=== PATIENT | male | born 1970 | race Caucasian/White ===

== ENCOUNTER → 2022-06-19 11:02 | Outpatient (CLI) | payer OTHER, SELFPAY ==
--- NOTE | ~2022-06-19 | XR_ITS ---
EXAMINATION: XR chest 2V 06/19/2022 11:18 INDICATION: Cough. Hypertension. PROCEDURE: 2 view chest COMPARISON: No prior studies for comparison. FINDINGS: The lungs are clear. The cardiomediastinal silhouette is within normal limits. There are no pleural effusions. There is no pneumothorax suspected. IMPRESSION: 1: NO ACUTE CARDIOPULMONARY DISEASE. Reviewed, dictated and finalized at location B. M EXAMINER
== END ==
PROVIDERS: PCP Physician Assistant Medical; Visit Provider Physician Assistant Medical
DX: R05.9 Cough, unspecified (principal)
CPT/HCPCS: 71046

== ENCOUNTER 2023-07-23 09:23 | Emergency (ER) | payer BC, SELFPAY ==
--- NOTE | ~2023-07-23 | XR_ITS ---
EXAMINATION: XR abdomen/kub 1V DATE: 07/23/2023 11:33 INDICATION: Kidney stone. Abdominal pain. TECHNIQUE: A supine view of the abdomen on 2 radiographs was obtained. COMPARISON: CT abdomen and pelvis 07/23/2023 FINDINGS: There are no dilated loops of bowel. There is contrast in the renal collecting system. Ther e is mild left hydronephrosis. IMPRESSION: 1. Mild left hydronephrosis. Reviewed, dictated and finalized at location A.
--- NOTE | ~2023-07-23 | CT_ITS ---
EXAMINATION: CT abdomen pelvis w con DATE: 07/23/2023 10:37 INDICATION: Pain TECHNIQUE: Computed tomography (CT) of the abdomen and pelvis was performed with 100 CC Omnipaque 350 intravenous contrast. Automated exposure control and iterative reconstruction technique were employe d. Exam dose: 1825.97 mGy-cm total exam DLP. COMPARISON: None. FINDINGS: Minimal atelectasis at the lung bases. Normal heart size. No pericardial or pleural effusio n. The liver, gallbladder, bile ducts, spleen, pancreas, pancreatic duct and adrenal glands are unremark able. No renal mass lesion is evident. There is mild perinephric stranding on the left in addition to left parapelvic and periureteral stranding. There is an obstructing approximately 5.7 mm calculus at the l eft ureteropelvic junction with mild left pelviectasis and hydronephrosis as a result. No other urinary tract calculus is evident. The urinary bladder, prostate gland and seminal vesicles are unremarkable. Small bilateral fat-containing inguinal hernias. Very small fat-containing umbilical hernia. There is minimal atherosclerotic calcification of the abdominal aorta and iliac arteries but no abdom inal aortic aneurysm. No intraperitoneal or retroperitoneal or pelvic mass lesion or adenopathy or as cites. Small sliding hiatal hernia. Normal appendix. No bowel obstruction, bowel wall thickening, pneumatosis or intraperitoneal free air is detected. Degenerative disc disease is noted particularly at L1-2 and L5-S1. No suspicious osteolytic or osteob lastic lesions are noted. IMPRESSION: Approximately 7 mm obstructing left ureteropelvic junction calculus with mild left hydro nephrosis and perinephric stranding Small sliding hiatal hernia Normal appendix Bilateral small fat-containing inguinal hernias and very small fat-containing umbilical hernia Reviewed, dictated and finalized at Location A. Reviewed, dictated and finalized at location B. IMPRESSION: Approximately 7 mm obstructing left ureteropelvic junction calculu s with mild left hydronephrosis and perinephric stranding Small sliding hiatal hernia Normal appendix Bilateral small fat-containing inguinal hernias and very small fat-containing u mbilical hernia
[2023-07-23 10:09] LABS: Basophils Absolute Auto 0.1 K/mm3 (0.0-0.1); Basophils Percent Auto 0.8 % (0.2-1.2); Eosinophils Absolute Auto 0.1 K/mm3 (0-0.3); Eosinophils Percent Auto 0.5 % (0-4.4); Hemoglobin 16.3 g/dL (14.0-18.0); Immature Granulocyte Absolute 0.11 K/mm3 (0.00-0.031); Immature Granulocyte Percent A 0.8 % (0-0.5); Lymphocytes Absolute Auto 1.46 K/mm3 (0.9-3.2); Mean Corpuscular HGB Conc 32.6 g/dl (32-36); Mean Corpuscular Hemoglobin 30.6 pg (26-34); Mean Platelet Volume 10.8 fl (7.4-10.4); Monocytes Absolute Auto 0.5 K/mm3 (0.1-0.6); Monocytes Percent Auto 4.1 % (2.6-8.5); Neutrophils Percent Auto 82.8 % (45.5-73.1); Platelet Count Result 249 k/mm3 (150-375); Red Blood Count 5.32 M/mm3 (4.6-6.20); Red Cell Distribution Width 12.2 % (11.5-14.5); White Blood Count 13.3 K/mm3 (4.5-10.0)
[2023-07-23 10:18] LABS: Alanine Aminotransferase 40 U/L (6-50); Albumin Level 4.3 g/dL (3.5-5.1); Alkaline Phosphatase 68 U/L (38-126); Anion Gap 5 mmol/L (4-12); Aspartate Amino Transferase 26 U/L (17-59); Bilirubin,Total 0.7 mg/dL (0.2-1.3); Blood Urea Nitrogen 13 mg/dL (9-20); Calcium 9.1 mg/dL (8.4-10.2); Carbon Dioxide 30 mmol/L (22-30); Chloride 103 mmol/L (98-107); Estimated CRCL calculation 124 ml/min; Estimated Glomerular Filt Rate > 60; Glucose 164 mg/dL (65-110); Lipase 58 U/L (23-300); Potassium 4.1 mmol/L (3.4-5.0); Sodium 138 mmol/L (137-145)
[2023-07-23] MEDS: SODIUM CHLORIDE 0.9% IV 1,000 ML 999 ML IV CONT (10:25)
[2023-07-23] MEDS: ONDANSETRON INJ 4 MG/2 ML VIAL IV PUSH (10:26)
[2023-07-23] MEDS: MORPHINE SULFATE (*CRX) 4 MG/ML INJ IV PUSH (10:26)
--- NOTE | 2023-07-23 10:29 | ED.GENADULT ---
HPI - General Adult General Chief complaint: Abdominal Pain Stated complaint: LLQ pain Time Seen by Provider: 07/23/23 09:43 History of Present Illness HPI narrative: patient is a 53-year-old male who presents ER with left lower quadrant abdominal pain. Began this morning. No radiation. He does have feelings of constipation but had a bowel movement yesterday. He has been nauseous and sweaty. No history of kidney stones and no history of diverticulitis. He reports having some spicy helping you know not shows yesterday that is a typical of him. Related Data Home Medications Medication Instructions Recorded Confirmed ibuprofen 200 mg tablet 200 mg PO Q6H PRN 10/04/20 01/01/23 Allergies Allergy/AdvReac Type Severity Reaction Status Date / Time No Known Allergies Allergy Mild Verified 07/23/23 09:54 Review of Systems Review of Systems: All systems reviewed & are unremarkable except as noted in HPI and below Constitutional: Constitutional: Denies chills and Denies fever(s) Comments: Sweating ENT: Reports system reviewed and no additional complaints, except as documented Cardiovascular: Cardiovascular: Reports no additional cardiovascular complaints Respiratory: Respiratory: Reports no additional respiratory complaints Gastrointestinal: Gastrointestinal: Reports abdominal pain, Reports constipation, Reports nausea and Denies vomiting Genitourinary: Genitourinary: Reports no additional male genitourinary complaints Musculoskeletal: Musculoskeletal: Reports no additional musculoskeletal complaints [facility] Past Medical History Medical History Elevated blood pressure reading in office with diagnosis of hypertension Hypertension KELLEY (obstructive sleep apnea) Family History Family History Father Malignant neoplasm of skin Hypertension Heart disease Mother Depression Daughter Depression Grandparent Heart disease Social History Social History Smoking status: Never smoker Second hand tobacco smoke exposure: No Alcohol intake: current Drinks per week: 6 Substance use: never Substance use type: does not use Lack of Transportation: No Lack of Food: Never True Current Housing: I Have Housing Concerned About Future Housing: No Difficulty Paying Gas/Electric Bills: No Difficulty Paying for Meds: No Currently Unemployed: No Difficulty w/ Childcare or Family Care: No Living arrangements: with family Gender identity (if verbalized by the patient): Male Sexual Orientation (if Verbalized by the Patient): Straight or Heterosexual Spiritual care concerns: No Agree to blood products: Yes Exam Narrative: GENERAL: Uncomfortable-appearing, morbidly obese, and in no acute distress. HEAD: Normocephalic, atraumatic. ENT: Mucous membranes moist. NECK: Supple. CHEST: Clear to auscultation. No respiratory distress. HEART: Regular rate and rhythm. Normal peripheral pulses. ABDOMEN: Soft, mild discomfort to left lower quadrant with palpation but no guarding, nondistended. EXTREMITIES: Normal range of motion. No edema. NEURO: Alert and oriented x3. PSYCH: Normal mood and affect. Course Course Emergency Course: Pain improved with morphine. Discussed case with Urology. They have come to the bedside and evaluated the patient. Patient will be discharged home with supportive care and they will perform lithotripsy tomorrow at an outpatient surgery center. They will provide him with this information. Return precautions discussed. Vital Signs Vital signs: Vital Signs Temperature 97.6 F 07/23/23 13:08 Pulse Rate 90 07/23/23 13:08 Respiratory Rate 18 07/23/23 13:08 Blood Pressure 130/80 07/23/23 13:08 Pulse Oximetry 99 07/23/23 13:08 Temperature 97.6 F 07/23/23 13:08 P
[2023-07-23 11:05] LABS: Appearance Urine Clear (Clear); Bacteria Urine None Seen /hpf; Bilirubin Urine Negative (Negative); Blood Urine 3+ (Negative); Color Urine Yellow (Yellow); Glucose Urine UA Trace mg/dL (Negative); Ketones Urine Negative (Negative); Leukocyte Esterase Ur Negative LEU/UL (Negative); Nitrate Urine Negative (Negative); Non Pathogenic Casts 0-2; Protein Urine Negative (Negative); RBC Urine >100 /hpf (0-2); Squamous Epithelial Cell Urine None Seen /hpf (Few); Urobilinogen Urine 0.2 mg/dL (<2.0); WBC Urine 0-5 /hpf (0-3)
[2023-07-23 11:15] LABS: Specific Grav Ur 1.031 (1.001-1.035)
[2023-07-23 11:17] LABS: Add Urine Microscopic? YES
--- NOTE | 2023-07-23 12:42 | WPDURCON ---
Assessment and Plan Assessment and plan (1) Obstruction of left ureteropelvic junction due to stone: Code(s): N20.1 - Calculus of ureter Status: Acute Plan I discussed the risks, benefits and alternatives. The patient with proximal ureteral stone and we discussed options of medical expulsive therapy, ureteroscopy, ESWL. Due to the patient's significant discomfort prior to narcotic pain medicine he would like to proceed with ESWL as soon as possible. We will plan to proceed with left ureteral ESWL tomorrow. The patient was instructed to avoid nonsteroidal anti-inflammatories and other blood thinners. Understands risk procedure include not limited to infection, bleeding, pain, inability to fragment stone, [place], inability to pass stone fragments, and complications of anesthesia. Patient understands and agrees to proceed Urology Consult Note HPI Date Seen: 07/23/23 Requesting Physician: Dr. Perez, ER Primary Care Provider: Liliam Salas MD Consult Narrative Narrative: Ankit Maldonado is a 53 year old male who presented to the emergency department today with acute onset of left-sided abdominal pain. Patient with improvement of the pain with IV morphine. He denies fevers or chills nausea vomiting. The patient does not have a history of stone disease. On CT scan imaging the patient was found have a 7mm proximal ureteral stone with associated left hydronephrosis PMFSH Past Medical History Medical History Elevated blood pressure reading in office with diagnosis of hypertension Hypertension KELLEY (obstructive sleep apnea) Family History Family History Father Malignant neoplasm of skin Hypertension Heart disease Mother Depression Daughter Depression Grandparent Heart disease Social History Social History Smoking status: Never smoker Second hand tobacco smoke exposure: No Alcohol intake: current Drinks per week: 6 Substance use: never Substance use type: does not use Lack of Transportation: No Lack of Food: Never True Current Housing: I Have Housing Concerned About Future Housing: No Difficulty Paying Gas/Electric Bills: No Difficulty Paying for Meds: No Currently Unemployed: No Difficulty w/ Childcare or Family Care: No Living arrangements: with family Gender identity (if verbalized by the patient): Male Sexual Orientation (if Verbalized by the Patient): Straight or Heterosexual Spiritual care concerns: No Agree to blood products: Yes Meds Home Medications and Allergies Home Medications Medication Instructions Recorded Confirmed Type ibuprofen 200 mg tablet 200 mg PO Q6H PRN 10/04/20 01/01/23 History losartan 25 mg tablet 25 mg PO DAILY #30 tabs 06/17/23 Rx propranolol 20 mg tablet 20 mg PO BID PRN anxiety provoking 07/21/23 Rx situation #60 tabs hydrocodone 5 mg-acetaminophen 325 1 tablet PO Q6H PRN pain #20 tabs 07/23/23 Rx mg tablet ondansetron 4 mg disintegrating 4 mg PO Q6H PRN nausea and 07/23/23 Rx tablet vomiting #10 tabs tamsulosin 0.4 mg capsule 0.4 mg PO DAILY #7 caps 07/23/23 Rx Allergies Allergy/AdvReac Type Severity Reaction Status Date / Time No Known Allergies Allergy Mild Verified 07/23/23 09:54 Exam Narrative: The patient is awake and alert. He is in no acute distress. His breathing is unlabored his abdomen is soft nontender nondistended. Results Labs 07/23/23 09:52 07/23/23 09:52 Labs: Short CBC 07/23/23 Range/Units 09:52 WBC 13.3 H (4.5-10.0) K/mm3 Hgb 16.3 (14.0-18.0) g/dL Hct 50.0 (42.0-52.0) % Plt Count 249 (150-375) k/mm3 BMP 07/23/23 09:52 Sodium 138 Potassium 4.1 Chloride 103 Carbon Dioxide 30 BUN 13 Creatinine 0.90 Glucose 164 H Calcium 9.1
[2023-07-23 13:08] VITALS: BP 130/80; PULSE 90; RESP 18; TEMP 36.4; O2SAT 99
== END 2023-07-23 13:09 | disposition home or self-care (01) ==
PROVIDERS: Emergency Provider Emergency Medicine; PCP Family Medicine
DX: N20.1 Calculus of ureter (principal); I10 Essential (primary) hypertension; G47.33 Obstructive sleep apnea (adult) (pediatric)
CPT/HCPCS: 36415; 74018; 74177; 80053; 81001; 83690; 85025; 96361; 96374; 96375; 99284; J2270; J2405; J7030; Q9967

== ENCOUNTER 2023-07-25 01:13 | Day surgery (SDC) | payer BC, SELFPAY ==
[2023-07-24 14:48] VITALS: BMI 42.0
--- NOTE | 2023-07-24 14:53 | PC.NURSE ---
Report to the Outpatient Waiting Room, entrance under the green pavilion located off [facility], at time 1300 on date 07/25/23. Planned Procedure Time: 1500. Time changes happen often and if your time is changed the preop area will call you the afternoon before. - You and your visitor will be asked to self-screen and do not enter if you have any COVID symptoms. - A mask is optional within the hospital at this time. Patients may have clear liquids (water, carbonated beverages, clear teas, apple juice) until 3 hours prior to surgery with a maximum of 20 ounces. - No food from midnight until time of surgery Take the following medications with a SIP of water the morning of surgery: PAIN PILL AND PROPRANOLOL IF NEEDED DO NOT STOP ANY OF YOUR OTHER PRESCRIPTION MEDICATIONS PRIOR TO SURGERY ?EXCEPT THE FOLLOWING Medications to discontinue per physician: N/A Date to take last dose: N/A Please no make-up, nail hungarian, hairspray, perfume, deodorant, or body powder the day of surgery. No jewelry (including any body piercings) or valuables the day of surgery, leave them at home. Please take a shower or bath the night before, or the morning of, surgery with an antibacterial soap. Wear comfortable, loose fitting clothing. - Jewelry must be removed prior to entering the operating room. Rings and piercings that are not removed may be cut off. - The hospital will not accept responsibility for valuables. - Please leave all valuables, including medications, at home the day of surgery. If you are going home after surgery, a licensed driver sales must drive you home. - NO public transportation without another adult if you receive anesthesia. - We recommend that an adult stay with you for 24 hours following discharge. - We also recommend that you do not drive, make important decision, drink alcoholic beverages, or take any drugs that were not prescribed by your health care provider for at least 24 hours after your discharge time. Follow any additional instructions given to you from your surgeon. If you or anyone in your household have experienced Covid symptoms in the past week, please notify your surgeon or the nurse liaison at the phone number below for possible testing. Telephone instructions given to PT Cruzito BRYANT and asked if any additional questions and then verbalized understanding. Patient advised to call surgeon office or pre surgery nurse liaison [phone] if any additional questions.
[2023-07-25] VITALS (7 sets, daily range): BP systolic 107–144; BP diastolic 69–89; PULSE 66–103; RESP 16–18; TEMP 36.9–37.2; O2SAT 90–95
--- NOTE | ~2023-07-25 | XR_ITS ---
. EXAMINATION: XR abdomen/kub 1V DATE: 07/25/2023 13:14 INDICATION: Kidney stone. TECHNIQUE: A supine view of the abdomen on 2 radiographs was obtained. COMPARISON: Abdomen radiographs 07/23/2023, CT abdomen and pelvis 07/23/2023 FINDINGS: There are no dilated loops of bowel. There is a 6 mm stone in proximal left ureter. IMPRESSION: 1. 6 mm stone in proximal left ureter. Reviewed, dictated and finalized at location A.
--- NOTE | 2023-07-25 06:11 | WPDHPUPDATE1 ---
History and Physical Update Update Date/Time: 07/25/23 06:11 History and Physical has been reviewed, including an updated exam of the patient. There are NO changes in the patient's condition. Risks, benefits, and alternatives have been discussed and questions answered. Patient agrees to proceed with procedure.
--- NOTE | 2023-07-25 10:54 | ECG_ITS ---
Measurements Intervals [place] Rate: 69 P: 30 CO: 154 QRS: -16 QRSD: 126 T: 45 QT: 396 QTc: 427 Interpretive Statements SINUS RHYTHM RIGHT BUNDLE BRANCH BLOCK [120+ ms QRS DURATION, UPRIGHT V1, 40+ ms S IN I/aVL/V4/V5/V6] NO PREVIOUS ECG AVAILABLE FOR COMPARISON Electronically Signed On 07-26-2023 13:18:35 CDT by Latonya Rico M.D.
--- NOTE | 2023-07-25 14:01 | WPDANESEPPF ---
Anes - Initial Pre Proc Eval Procedure: Operation Date: 07/25/23 15:00 Proposed Procedures p Left Extracorporeal Shock Wave Lithotripsy - Rudi Gonzalez MD Date/Time: 07/25/23 14:01 Surgeon: Rudi Gonzalez MD Pre Op Diagnosis: left ureteral stone Patient Data Age: 53 Gender: M Height: 1.83 m Weight: 140.6 kg Allergies Allergy/AdvReac Type Severity Reaction Status Date / Time No Known Allergies Allergy Mild Verified 07/24/23 14:47 Home Medications Medication Instructions Recorded Confirmed Type losartan 25 mg tablet 25 mg PO DAILY #30 tabs 06/17/23 07/24/23 Rx propranolol 20 mg tablet 20 mg PO BID PRN anxiety provoking 07/21/23 07/24/23 Rx situation #60 tabs hydrocodone 5 mg-acetaminophen 325 1 tablet PO Q6H PRN pain #20 tabs 07/23/23 07/24/23 Rx mg tablet ondansetron 4 mg disintegrating 4 mg PO Q6H PRN nausea and 07/23/23 07/24/23 Rx tablet vomiting #10 tabs tamsulosin 0.4 mg capsule 0.4 mg PO DAILY #7 caps 07/23/23 07/24/23 Rx Laboratory Tests 07/25/23 13:45 PT Pending INR Pending APTT Pending Patient hx anesthesia problems: none Family hx anesthesia problems: none Results Review: All pre-operative results and documents have been reviewed as part of the pre-operative evaluation. [facility] Past Medical History Medical History Elevated blood pressure reading in office with diagnosis of hypertension Hypertension KELLEY (obstructive sleep apnea) Family History Family History Father Malignant neoplasm of skin Hypertension Heart disease Mother Depression Daughter Depression Grandparent Heart disease Social History Social History Smoking status: Never smoker Second hand tobacco smoke exposure: No Alcohol intake: current Drinks per week: 4 Substance use: never Substance use type: does not use Lack of Transportation: No Lack of Food: Never True Current Housing: I Have Housing Concerned About Future Housing: No Difficulty Paying Gas/Electric Bills: No Difficulty Paying for Meds: No Currently Unemployed: No Difficulty w/ Childcare or Family Care: No Living arrangements: with family Gender identity (if verbalized by the patient): Male Sexual Orientation (if Verbalized by the Patient): Straight or Heterosexual Spiritual care concerns: No Agree to blood products: Yes Anes - Eval Final PreProcedure Day of Procedure 07/25/23 14:01 Patient weight: morbidly obese Heart: regular rate and rhythm Lungs: clear to auscultation Airway: Mallampati scale class II Neurological: alert and oriented Last oral intake: >/= 8 hours ASA classification: III Emergent: no Anesthetic plan: proceed Anesthesia type and monitoring: general and standard monitoring Other findings: Severe KELLEY on CPAP per pt and . Results Review: All pre-operative results and documents have been reviewed as part of the pre-operative evaluation. Informed Consent: The patient's anesthetic plan and its attendant risks and benefits were discussed with the patient/family/POA. Questions were solicited and answers provided to the satisfaction of the patient/family/POA.
[2023-07-25 14:04] LABS: Partial Thromboplastin Time 27.8 Seconds (22.3-36.8); Prothrombin Time 13.4 Seconds (11.1-14.7)
[2023-07-25] MEDS: ceFAZolin 3 GM/D5W 100 ML 100 ML IVPB (14:05)
[2023-07-25] MEDS: LACTATED RINGERS 1,000 ML 30 ML IV CONT (14:49)
--- NOTE | 2023-07-25 15:38 | W.PM.PROC2 ---
Procedure Note - Detailed Date of Procedure 07/25/23 Pre-op Diagnosis Left ureteral stone Post-op Diagnosis Same Procedure Performed Left ESWL Surgeon Rudi Gonzalez MD Anesthesia General Description of Procedure The patient was brought to the operative suite where he was placed in the supine position on the Dornier lithotripsy table. The focal point of the lithotripter was placed at a 5-6mm left proximal ureteral calculus. A total of shocks were delivered at a power setting of 5. There appeared to be good fragmentation of the stone. The patient tolerated the procedure well and was taken to the recovery room in good condition. Drains No Packing No Pathology None sent Complications No immediate complications
--- NOTE | 2023-07-28 13:10 | PM.HPGS ---
History of Present Illness History of Present Illness Consent: Risks, benefits, and alternatives have been discussed and questions answered. Patient agrees to proceed with procedure. Chief complaint: left ureteral stone Narrative: Ankit Maldonado is a 53 year old male who had been recently admitted [facility] with an obstructing painful 5 mm left proximal ureteral stone. He was discharged and arrangements were made for outpatient ESWL. He has had no fevers chills or gross hematuria Review of Systems Review of Systems: All systems reviewed & are unremarkable except as noted in HPI and below PMFSH Past Medical History Medical History Elevated blood pressure reading in office with diagnosis of hypertension Hypertension KELLEY (obstructive sleep apnea) Family History Family History Father Malignant neoplasm of skin Hypertension Heart disease Mother Depression Daughter Depression Grandparent Heart disease Social History Social History Smoking status: Never smoker Second hand tobacco smoke exposure: No Alcohol intake: current Drinks per week: 4 Substance use: never Substance use type: does not use Lack of Transportation: No Lack of Food: Never True Current Housing: I Have Housing Concerned About Future Housing: No Difficulty Paying Gas/Electric Bills: No Difficulty Paying for Meds: No Currently Unemployed: No Difficulty w/ Childcare or Family Care: No Living arrangements: with family Gender identity (if verbalized by the patient): Male Sexual Orientation (if Verbalized by the Patient): Straight or Heterosexual Spiritual care concerns: No Agree to blood products: Yes Meds Home Medications and Allergies Home Medications Medication Instructions Recorded Confirmed Type losartan 25 mg tablet 25 mg PO DAILY #30 tabs 06/17/23 07/24/23 Rx propranolol 20 mg tablet 20 mg PO BID PRN anxiety provoking 07/21/23 07/24/23 Rx situation #60 tabs hydrocodone 5 mg-acetaminophen 325 1 tablet PO Q6H PRN pain #20 tabs 07/23/23 07/24/23 Rx mg tablet ondansetron 4 mg disintegrating 4 mg PO Q6H PRN nausea and 07/23/23 07/24/23 Rx tablet vomiting #10 tabs tamsulosin 0.4 mg capsule 0.4 mg PO DAILY #7 caps 07/23/23 07/24/23 Rx hydrocodone 5 mg-acetaminophen 325 1 - 2 tablet PO Q6H PRN pain #20 07/25/23 Rx mg tablet tabs Allergies Allergy/AdvReac Type Severity Reaction Status Date / Time No Known Allergies Allergy Mild Verified 07/24/23 14:47 Exam Const: General: no acute distress Resp: Effort & Inspection: normal respiratory effort GI: Inspection: non-distended GI Palp: No abdominal tenderness and No Guarding due to palpation present (GI) Auscultation: normal bowel sounds Assessment and Plan Assessment and plan (1) Left ureteral stone: Code(s): N20.1 - Calculus of ureter Status: Acute Assessment and Plan: Left ESWL
== END 2023-07-25 16:15 | disposition home or self-care (01) ==
PROVIDERS: PCP Family Medicine; Visit Provider Urology
PROC: (CPT 50590; principal; 2023-07-25 15:00)
DX: N20.1 Calculus of ureter (principal); I10 Essential (primary) hypertension; G47.33 Obstructive sleep apnea (adult) (pediatric); E66.01 Morbid (severe) obesity due to excess calories; Z68.41 Body mass index [BMI] 40.0-44.9, adult
CPT/HCPCS: 50590; 36415; 74018; 85610; 85730; 93005; J0690; J1100; J2405; J2704; J7120

== ENCOUNTER 2023-08-06 15:09 | Outpatient (CLI) | payer BC, SELFPAY ==
--- NOTE | ~2023-08-06 | XR_ITS ---
EXAMINATION: XR abdomen/kub 1V DATE: 08/06/2023 15:26 INDICATION: Left ureteral stone. TECHNIQUE: A supine view of the abdomen on 2 radiographs was obtained. COMPARISON: CT abdomen and pelvis 07/23/2023 FINDINGS: There are no dilated loops of bowel. There is a 5 mm stone in proximal left ureter at L2-L3 . IMPRESSION: 1. 5 mm stone in proximal left ureter. Reviewed, dictated and finalized at location E.
== END 2023-08-06 15:10 | disposition home or self-care (01) ==
LOC: ANHIMG 15:10
PROVIDERS: PCP Family Medicine; Visit Provider Urology
DX: N20.1 Calculus of ureter (principal)
CPT/HCPCS: 74018